=== PATIENT | female | born 1945 | race Caucasian/White ===

== ENCOUNTER 2020-01-21 15:46 | Outpatient (REF) | payer MEDICARE, SELFPAY ==
--- NOTE | 2020-01-21 16:00 | MR_ITS ---
MRI OF THE BRAIN WITHOUT IV CONTRAST INDICATION: Frontal headache. History of prior meningioma resection. COMPARISON: Brain MRI 02/20/2017. TECHNIQUE: Multiplanar multisequence MR imaging of the brain was obtained without IV contrast. FINDINGS: Chronic postoperative changes following left occipital craniotomy. There is chronic encephalomalacia and gliosis within the left cerebellum and left occipital lobe. There is mild chronic microangiopathy. There is parietal lobe predominant cerebral volume loss. There is no hydrocephalus, extra-axial surface collection, or herniation. The major flow voids at the skull base are preserved. There is no acute infarct on diffusion-weighted imaging. There is no intracranial hemorrhage on the gradient recalled echo acquisition. The midline structures are normal. The cerebellar tonsils are normally positioned. The craniocervical junction is normal. Osseous marrow signal intensity is homogenous. The visualized soft tissues are unremarkable. MR/MR head/brain wo con IMPRESSION: - No acute intracranial findings. - Chronic postoperative changes following left occipital craniotomy. There is chronic encephalomalacia and gliosis within the left cerebellum and left occipital lobe. There is mild chronic microangiopathy. There is parietal lobe predominant cerebral volume loss.
== END 2020-01-21 15:47 | disposition home or self-care (01) ==
LOC: HO.MRI 15:46
PROVIDERS: PCP Internal Medicine; Visit Provider Internal Medicine
DX: R51.9 Headache, unspecified (principal); Z86.011 Personal history of benign neoplasm of the brain
CPT/HCPCS: 70551

== ENCOUNTER 2020-03-29 11:24 | Outpatient (REF) | payer MEDICARE, SELFPAY ==
--- NOTE | ~2020-03-29 | MM_ITS ---
EXAMINATION: MM SCREENING DIGITAL BREAST TOMOSYNTHESIS, BILATERAL CLINICAL INFORMATION: Screening. Asymptomatic. The lifetime risk of breast cancer based on the Tyrer-Cuzick Model is 3%. COMPARISON: Mammography: 03/24/2019, 03/18/2018, 02/16/2017 TECHNIQUE: Digital breast tomosynthesis is performed in both the craniocaudal and mediolateral oblique views along with computer-aided detection (CAD). Synthesized 2D images are generated from the tomosynthesis. FINDINGS: There are scattered areas of fibroglandular density (ACR BI-RADS breast composition Category b). Parenchymal pattern is similar to prior studies. Again, there is stable nodule posterior 3:00 left breast and stable intramammary node posterior upper outer right breast. There is no developing density or interval mass or architectural abnormality. No abnormal calcifications. The axilla and skin contours are unremarkable. MM/MM tomosynthesis screening BI IMPRESSION: No significant changes from prior exams. ASSESSMENT: BI-RADS 2: Benign RECOMMENDATION: Routine annual mammography screening. This patient's information was entered into a reminder system with a target due date for their next mammogram.
== END 2020-03-29 11:25 | disposition home or self-care (01) ==
LOC: HO.MAMMO 11:24
PROVIDERS: Visit Provider Internal Medicine
DX: Z12.31 Encounter for screening mammogram for malignant neoplasm of breast (principal)
CPT/HCPCS: 77063; 77067

== ENCOUNTER 2020-07-08 07:31 | Outpatient (REF) | payer MEDICARE, SELFPAY ==
[2020-07-08 08:40] LABS: MANUAL DIFF FLAG NO
[2020-07-08 08:44] LABS: Basophils Percent Auto 0.7 % (0-2); Eosinophils Absolute Auto 0.2 X10*3/uL (0.0-0.4); Eosinophils Percent Auto 3.5 % (0-4); Hematocrit 41.8 % (37-47); Hemoglobin 13.7 g/dl (12.0-16.0); Lymphocytes Absolute Auto 1.6 X10*3/uL (1.2-4.9); Lymphocytes Percent Auto 34.1 % (20-40); Mean Corpuscular HGB Conc 32.8 g/dl (31.0-35.0); Mean Corpuscular Hemoglobin 31.7 pg (27.0-33.0); Mean Corpuscular Volume 96.8 fL (80-98); Mean Platelet Volume 10.8 fL (9.4-12.3); Monocytes Absolute Auto 0.3 X10*3/uL (0.1-1.2); Monocytes Percent Auto 7.4 % (2-11); Neutrophils Absolute Auto 2.5 X10*3/uL (2.0-8.3); Neutrophils Percent Auto 54.3 % (45-73); Platelet Count 254 X10*3/uL (160-400); Red Blood Count 4.32 X10*6/uL (4.20-5.50); Red Cell Distribution Width 13.4 % (11.0-16.0); White Blood Count 4.6 X10*3/uL (4.8-10.8)
[2020-07-08 09:08] LABS: Alanine Aminotransferase 20 U/L (0-31); Alkaline Phosphatase 60 U/L (39-117); Anion Gap 13 (12-20); Aspartate Amino Transferase 17 U/L (5-31); Bilirubin Total 0.3 mg/dL (0.0-1.0); Blood Urea Nitrogen 19 mg/dL (9-16); Calcium 9.5 mg/dL (8.4-10.2); Carbon Dioxide 28 mmol/L (22-29); Chloride 107 mmol/L (96-108); Cholesterol 230 mg/dL; Estimated Glomerular Filt Rate > 60; Glucose Random 105 mg/dL (60-115); HDL Cholesterol 76 mg/dL; LDL Cholesterol Calculated 141 mg/dl; Potassium 4.5 mmol/L (3.3-5.1); Sodium 143 mmol/L (135-145); Total Protein 6.5 g/dL (6.5-8.0); Triglycerides 69 mg/dL
[2020-07-08 09:22] LABS: TSH reflex Free T4 1.02 uIU/mL (0.32-4.0)
[2020-07-09 13:25] LABS: Lyme Abs Screen <0.90 index
== END 2020-07-08 07:32 | disposition home or self-care (01) ==
LOC: HO.LAB 07:31
PROVIDERS: PCP Internal Medicine; Visit Provider Internal Medicine
DX: R21 Rash and other nonspecific skin eruption (principal)
CPT/HCPCS: 36415; 80053; 80061; 84443; 85025; 86617; 86618

== ENCOUNTER 2021-05-05 15:33 | Outpatient (REF) | payer MEDICARE, SELFPAY ==
--- NOTE | ~2021-05-05 | MM_ITS ---
EXAMINATION: MM SCREENING DIGITAL BREAST TOMOSYNTHESIS, BILATERAL CLINICAL INFORMATION: Screening. Asymptomatic. The lifetime risk of breast cancer based on the Tyrer-Cuzick Model is 3%. COMPARISON: Mammography: 03/29/2020 and prior exams dating back to 07/08/2009 TECHNIQUE: Digital breast tomosynthesis is performed in both the craniocaudal and mediolateral oblique views along with computer-aided detection (CAD). Synthesized 2D images are generated from the tomosynthesis. FINDINGS: There are scattered areas of fibroglandular density (ACR BI-RADS breast composition Category b). The right MLO view has a 0.4 mm oval asymmetric density at the posterior margin of the film close to the posterior nipple line, approximately 7.5 cm from the nipple. Finding not seen with certainty on prior studies. Patient will be recalled for additional imaging. The remainder of the breasts are stable. There is a chronic oval nodule left breast posterior 3:30 o'clock position and 2 intramammary nodes upper outer right breast. There are no abnormal calcifications. The axilla and skin contours are unremarkable. MM/MM tomosynthesis screening BI IMPRESSION: 1. Right: Asymmetric density 0.4 cm near posterior nipple line at posterior margin right MLO view. 2. Left: No mammographic evidence of malignancy. ASSESSMENT: BI-RADS 0: Incomplete - Need Additional Imaging Evaluation RECOMMENDATION: 1. Additional views of the right breast (changed angle MLO, posterior CC). 2. Targeted ultrasound if warranted after review of the additional views. 3. Radiology department staff will contact the patient for additional imaging. This patient's information was entered into a reminder system with a target due date for their next mammogram.
== END 2021-05-05 15:34 | disposition home or self-care (01) ==
LOC: HO.MAMMO 15:33
PROVIDERS: PCP Internal Medicine; Visit Provider Internal Medicine
DX: Z12.31 Encounter for screening mammogram for malignant neoplasm of breast (principal)
CPT/HCPCS: 77063; 77067

== ENCOUNTER 2021-05-17 13:51 | Outpatient (REF) | payer MEDICARE, SELFPAY ==
--- NOTE | ~2021-05-17 | MM_ITS ---
EXAMINATION: MM DIAGNOSTIC DIGITAL BREAST TOMOSYNTHESIS, RIGHT US DIAGNOSTIC ULTRASOUND BREAST, RIGHT CLINICAL INFORMATION: Recall from screening for small oval asymmetric density posterior margin of film) posterior nipple line. Finding may be beyond field of view on prior exams. COMPARISON: Mammography: 05/05/2021, 03/29/2020 and prior exams dating back to 07/08/2009. TECHNIQUE: Digital breast tomosynthesis is performed. 2D images are generated from the tomosynthesis. The following views are obtained: Right MLO x2, exaggerated right CC. Ultrasound right breast is targeted to the posterior breast imaging from all 4 quadrants. Grayscale imaging and color Doppler are performed without and with harmonics. FINDINGS: There are scattered areas of fibroglandular density (ACR BI-RADS breast composition Category b). Additional views show small oval circumscribed smooth nodular asymmetry posterior nipple line 7.5 cm from nipple measuring 6 mm in length. No correlate on exaggerated CC view. There are 2 incidental nodes in the posterior outer right breast similar to prior studies. Ultrasound demonstrates incidental simple cyst 8:00 position adjacent to chest wall 7-8 cm from nipple measuring 6 mm in length by 4 mm in width. There is increased through-transmission of sound. No associated color flow. This corresponds to the finding on mammography. There is no solid mass or architectural abnormality. No focal duct ectasia. Chest wall soft tissues appear normal. Results are discussed with the patient at time of visit. MM/MM tomosynthesis added views R IMPRESSION: -Smooth nodular asymmetry under 1 cm posterior outer right breast, possibly beyond field of view on prior imaging. -Oval simple cyst posterior 8:00 position adjacent to chest wall under 1 cm corresponding to the mammography. No solid mass or architectural abnormality. ASSESSMENT: BI-RADS 2: Benign RECOMMENDATION: Routine annual mammography screening. This patient's information was entered into a reminder system with a target due date for their next mammogram.
== END 2021-05-17 13:52 | disposition home or self-care (01) ==
LOC: HO.MAMMO 13:51
PROVIDERS: PCP Internal Medicine; Visit Provider Internal Medicine
DX: R92.2 Inconclusive mammogram (principal)
CPT/HCPCS: 76642; 77061; 77065

== ENCOUNTER 2022-01-24 08:49 | Outpatient (REF) | payer MEDICARE, SELFPAY ==
--- NOTE | ~2022-01-24 | MM_ITS ---
EXAMINATION: BONE DENSITOMETRY CLINICAL INDICATION: Osteoporosis. COMPARISON: Previous BD dated 01/09/2019 and baseline BD dated 02/17/2005. TECHNIQUE: Using a [employer] DXA System (software version: 13.1) manufactured by [employer], dual-energy x-ray absorptiometry was performed of the lumbar spine and left hip. The images are of good technical quality. Summary results are attached. FINDINGS: AP SPINE L1-L4: Current: BMD 1.017 g/cm2, Z-score 0.5, T-score -1.4, osteopenia, 3.1% decrease from previous, 7.7% increase from baseline (<5% change is not significant). Prior: BMD 1.049 g/cm2. Baseline: BMD 0.944 g/cm2. LEFT FEMUR, NECK: Current: BMD 0.755 g/cm2, Z-score 0.0, T-score -2.0, osteopenia. Prior: BMD 0.761 g/cm2. Baseline: BMD 0.922 g/cm2. LEFT FEMUR, TOTAL: Current: BMD 0.806 g/cm2, Z-score 0.2, T-score -1.6, osteopenia, 4.6% decrease from previous, 18.5% decrease from baseline (<5% change is not significant). Prior: BMD 0.845 g/cm2. Baseline: BMD 0.989 g/cm2. IDENTIFIED RISK FACTORS: Osteoporosis, family history (parental hip fracture), menopause. HISTORY OF FRACTURE: Foot. MEDICATIONS: Multivitamin. MM/XR DEXA axial skeleton IMPRESSION: 1. DIAGNOSIS: Osteopenia based on the lowest T-score value of -2.0 in the femoral neck applying World Health Organization criteria. 2. 10-YEAR FRACTURE RISK PREDICTION, FRAX: Major osteoporotic fracture (clinical spine, forearm, hip or shoulder) 25.6%. Hip fracture 15.6%. 3. Treatment Recommendations: NOF guidelines recommend consideration for treatment in postmenopausal women and men age 50 and older presenting with the following: -A hip or vertebral (clinical or morphometric) fracture. -T-score less than or equal to -2.5 at the femoral neck or spine after appropriate evaluation to exclude secondary causes. -Low bone mass at the hip or spine and a 10-year fracture probability by FRAX of greater than or equal to 3% for hip fracture or greater than or equal to 20% for major osteoporotic fracture based on the [place] adapted WHO algorithm. 4. Other Recommendations: All treatment decisions require clinical judgment and consideration of individual patient factors, including patient preferences, comorbidities, previous drug use, risk factors not captured in the FRAX model (e.g. frailty, falls, vitamin D deficiency, increased bone turnover, interval significant decline in bone density) and possible under or overestimation of fracture risk by FRAX. Additional medical evaluation for secondary cause of low bone mineral density may be appropriate. FUTURE SCAN RECOMMENDATION: People with diagnosed cases of osteoporosis or at high risk for fracture should have regular bone mineral density tests. For patients eligible for Medicare, routine testing is allowed once every 2 years. The testing frequency can be increased to one year for patients who have rapidly progressing disease, those who are receiving or discontinuing medical therapy to restore bone mass, or have additional risk factors.
== END 2022-01-24 08:50 | disposition home or self-care (01) ==
LOC: HO.MAMMO 08:49
PROVIDERS: PCP Internal Medicine; Visit Provider Internal Medicine
DX: Z13.820 Encounter for screening for osteoporosis (principal); Z78.0 Asymptomatic menopausal state; M81.0 Age-related osteoporosis without current pathological fracture
CPT/HCPCS: 77080

== ENCOUNTER 2022-03-31 07:33 | Outpatient (REF) | payer MEDICARE, SELFPAY ==
[2022-03-31 10:27] LABS: MANUAL DIFF FLAG NO
[2022-03-31 10:44] LABS: Basophils Percent Auto 0.6 % (0-2); Eosinophils Absolute Auto 0.3 X10*3/uL (0.0-0.4); Hematocrit 43.5 % (37.0-47.0); Hemoglobin 14.4 g/dl (12.0-16.0); Imm Gran Abs Auto 0.02 X10*3/uL (0.00-0.03); Imm Gran Pct Auto 0.3 % (0.0-0.4); Lymphocytes Absolute Auto 1.8 X10*3/uL (1.2-4.9); Lymphocytes Percent Auto 28.5 % (20-40); Mean Corpuscular HGB Conc 33.1 g/dl (31.0-35.0); Mean Corpuscular Hemoglobin 31.8 pg (27.0-33.0); Monocytes Absolute Auto 0.5 X10*3/uL (0.1-1.2); Monocytes Percent Auto 8.2 % (2-11); Neutrophils Absolute Auto 3.8 x10*3/uL (2.0-8.3); Neutrophils Percent Auto 58.4 % (45-73); Platelet Count 291 X10*3/uL (160-400); Red Blood Count 4.53 X10*6/uL (4.20-5.50); Red Cell Distribution Width 13.5 % (11.0-16.0); White Blood Count 6.4 X10*3/uL (4.8-10.8)
[2022-03-31 10:57] LABS: Alanine Aminotransferase 19 U/L (0-31); Albumin Level 3.9 g/dL (3.5-5.0); Alkaline Phosphatase 62 U/L (39-117); Anion Gap 14 (12-20); Aspartate Amino Transferase 17 U/L (5-31); Bilirubin Total 0.4 mg/dL (0.0-1.0); Blood Urea Nitrogen 18 mg/dL (9-16); Calcium 9.5 mg/dL (8.4-10.2); Carbon Dioxide 25 mmol/L (22-29); Chloride 109 mmol/L (96-108); Cholesterol 261 mg/dL; Estimated Glomerular Filt Rate > 60; Glucose Fasting 98 mg/dL (60-99); HDL Cholesterol 74 mg/dL; LDL Cholesterol Calculated 167 mg/dl; Potassium 4.4 mmol/L (3.3-5.1); Sodium 144 mmol/L (135-145); Total Protein 6.4 g/dL (6.5-8.0); Triglycerides 101 mg/dL
[2022-03-31 11:17] LABS: TSH reflex Free T4 2.01 uIU/mL (0.32-4.0); Vitamin D 25-OH Total 38.2 ng/mL (>30)
== END 2022-03-31 07:34 | disposition home or self-care (01) ==
LOC: HO.10HDL 07:33
PROVIDERS: Absent Provider Internal Medicine Endocrinology, Diabetes & Metabolism; Visit Provider Internal Medicine
DX: Z00.00 Encounter for general adult medical examination without abnormal findings (principal); N81.0 Urethrocele
CPT/HCPCS: 36415; 80053; 80061; 82306; 84443; 85025

== ENCOUNTER 2022-05-11 14:51 | Outpatient (REF) | payer MEDICARE, SELFPAY ==
--- NOTE | ~2022-05-11 | MM_ITS ---
EXAMINATION: MM SCREENING DIGITAL BREAST TOMOSYNTHESIS, BILATERAL CLINICAL INFORMATION: Screening. Asymptomatic. The lifetime risk of breast cancer based on the Tyrer-Cuzick Model is 2.7%. COMPARISON: Mammography: May 17, 2021 and studies dating back to November 11, 2015 TECHNIQUE: Digital breast tomosynthesis is performed in both the craniocaudal and mediolateral oblique views along with computer-aided detection (CAD). Synthesized 2D images are generated from the tomosynthesis. FINDINGS: There are scattered areas of fibroglandular density (ACR BI-RADS breast composition Category b). There are no new significant masses, abnormal calcifications, or other abnormalities. Bilateral circumscribed densities again seen. MM/MM tomosynthesis screening BI IMPRESSION: No significant changes ASSESSMENT: BI-RADS 2: Benign RECOMMENDATION: Routine annual mammography screening. This patient's information was entered into a reminder system with a target due date for their next mammogram.
== END 2022-05-11 14:52 | disposition home or self-care (01) ==
LOC: HO.MAMMO 14:51
PROVIDERS: PCP Internal Medicine; Visit Provider Internal Medicine
DX: Z12.31 Encounter for screening mammogram for malignant neoplasm of breast (principal)
CPT/HCPCS: 77063; 77067

== ENCOUNTER 2023-05-17 09:16 | Outpatient (REF) | payer MEDICARE, SELFPAY | END 2023-05-17 09:17 | disposition home or self-care (01) | LOC: HO.MAMMO 09:16 | PROVIDERS: PCP Internal Medicine; Visit Provider Internal Medicine | DX: Z12.31 Encounter for screening mammogram for malignant neoplasm of breast (principal) | CPT/HCPCS: 77063; 77067 ==

== ENCOUNTER → 2023-05-17 09:30 | Outpatient (BNV) | payer MEDICARE, SELFPAY | PROVIDERS: PCP Internal Medicine; Visit Provider Radiology Diagnostic Radiology | DX: Z12.31 Encounter for screening mammogram for malignant neoplasm of breast (principal) | CPT/HCPCS: 77063; 77067 ==

== ENCOUNTER 2023-05-18 07:43 | Outpatient (REF) | payer MEDICARE, SELFPAY ==
[2023-05-18 11:05] LABS: MANUAL DIFF FLAG NO
[2023-05-18 11:13] LABS: Basophils Percent Auto 0.4 % (0-2); Eosinophils Absolute Auto 0.3 X10*3/uL (0.0-0.4); Eosinophils Percent Auto 4.3 % (0-4); Hematocrit 40.6 % (37.0-47.0); Hemoglobin 13.5 g/dl (12.0-16.0); Imm Gran Abs Auto 0.02 X10*3/uL (0.00-0.03); Imm Gran Pct Auto 0.3 % (0.0-0.4); Lymphocytes Absolute Auto 1.9 X10*3/uL (1.2-4.9); Lymphocytes Percent Auto 27.7 % (20-40); Mean Corpuscular HGB Conc 33.3 g/dl (31.0-35.0); Mean Corpuscular Hemoglobin 31.4 pg (27.0-33.0); Mean Corpuscular Volume 94.4 fL (80.0-98.0); Mean Platelet Volume 10.6 fL (9.4-12.3); Monocytes Absolute Auto 0.5 X10*3/uL (0.1-1.2); Monocytes Percent Auto 7.7 % (2-11); Neutrophils Absolute Auto 4.1 x10*3/uL (2.0-8.3); Neutrophils Percent Auto 59.6 % (45-73); Platelet Count 274 X10*3/uL (160-400); Red Cell Distribution Width 13.4 % (11.0-16.0); White Blood Count 6.9 X10*3/uL (4.8-10.8)
[2023-05-18 11:33] LABS: Alanine Aminotransferase 24 U/L (0-31); Albumin Level 3.7 g/dL (3.5-5.0); Alkaline Phosphatase 52 U/L (39-117); Anion Gap 12 (12-20); Aspartate Amino Transferase 17 U/L (5-31); Bilirubin Total 0.4 mg/dL (0.0-1.0); Blood Urea Nitrogen 19 mg/dL (9-16); Calcium 9.1 mg/dL (8.4-10.2); Carbon Dioxide 26 mmol/L (22-29); Chloride 110 mmol/L (96-108); Cholesterol 220 mg/dL (<200); Estimated Glomerular Filt Rate > 60; Glucose Random 103 mg/dL (60-115); HDL Cholesterol 57 mg/dL (>40); LDL Cholesterol Calculated 144 mg/dL (<100); Potassium 3.9 mmol/L (3.3-5.1); Sodium 144 mmol/L (135-145); Total Protein 6.8 g/dL (6.5-8.0); Triglycerides 95 mg/dL (<150)
== END 2023-05-18 07:44 | disposition home or self-care (01) ==
LOC: HO.10HDL 07:43
PROVIDERS: Referring Provider Internal Medicine Endocrinology, Diabetes & Metabolism; Visit Provider Internal Medicine
DX: Z00.00 Encounter for general adult medical examination without abnormal findings (principal); M81.0 Age-related osteoporosis without current pathological fracture; Z20.2 Contact with and (suspected) exposure to infections with a predominantly sexual mode of transmission
CPT/HCPCS: 36415; 80053; 80061; 82306; 85025

== ENCOUNTER 2024-05-22 09:19 | Outpatient (REF) | payer MEDICARE, SELFPAY ==
--- OUTSIDE RECORDS SUMMARY | 2024-05-22 09:49 | XMS_ITS ---
Author Organization [facility] Address [address] [place] [address] Care Team Providers Care Environmental Systems Coordinator Name Role Phone Saul Blanton MD Primary Care Provider Unavailab Tami Cain Unavailable [phone] Lovelace Medications Medication SIG (Take, Route, Frequency, Duration) Notes Start Date End Date Status PreserVision AREDS A ctive Citalopram & Diet Manage Prod Active Social History Tobacco Use: Social History Observation Description Date Details (start date - stop date) Former Smoker NA - NA Tobacco Use/Smoking Question Answer Notes Are you a: former smoker Additional Findings: Tobacco Non-User Current no n-smoker Alcohol Screen Question Answer Notes Did you have a drink containing alcohol in the p ast year? Yes Points 0 Interpretation Negative Tobacco use other than smoking: Question Answer Notes Are you an other tobacco user? No Vital Signs Height 5 ft 3 in in 11/19/2023 Weight 135 lbs 11/19/2023 BMI 23.91 kg/m2 11/19/2023 Encounters Encounter Location Date Provider [facility] [address] [place] [address] 11/19/2023 Tami Crabtree Plan Of Treatment Next Appt Details Provider Name:Tami A Bro , 07/17/2024 09:15:00 AM, [address] [place], [address], Progress Notes * Denzel LAYTONOB:1945 (79 yo F)Acc No.[id number]:11/19/2023 Progress Notes Patient:Joy BAILEY Provider:?Tami Crabtree DPM :1945???Age:78 Y???Sex:Female D ate:11/19/2023 Address:[address] [place], [place] [id number] Pcp:Saul Blanton MD Subjective: * Chief Complaints: * ???1. Dr Lovelace. * ROS:?General/Constitutional:?Nausea?denies.?Vomiting?denies.?Hunger Thirst?denies.?Loss appetite?denies.?Chills?denies.?Fatigue?denies.?Fever?denies.?Night Sweats?denies.?Unexplained weight loss?denies.?Unexplained weight gain?denies.?HEENTM:?Dentures?denies.?Dizziness?denies.?Glasses/contacts?admits.?Retinopathy?de nies.?Blurred/double vision?admits.?TMJ?denies.?Discharge/drainage?denies.?Implants?denies.?Sore throat?denies.?Dental implants?admits.?Hard of hearing ?admits.?Difficulty chewing/swallowing/speaking?denies.?Nose bleeds?denies.?Sore mouth?denies.?Respiratory:?On Oxygen?denies.?Pneumonia/pleurisy?denies.?Bronchitis?denies.?Emphysema?denies.?C oughing?denies.?Cough blood?denies.?Shortness of breath?denies.?Wheezing?denies.?Cardiovascular:?Pacemaker?denies.?MVP?denies.?WPW?denies.?CHF?denies.?Heart attack?denies.?Septal defect?denies.?Rapid beat?denies.?Chest pain ?denies.?Atrial Fib.?denies.?Murmur/Palpitations?denies.?Gastrointestinal:?Hemorrhoids?denies.?Stomach/Abdominal pain?denies.?Dark blood stool?denies.?Irritable bowel ?denies.?Constipation?denies.?Diarrhea?admits.?Hematology:?Swelling?denies.?Clots?denies.?Varicose Veins?denies.?Bruising?denies.?Bleeding problem?denies.?Genitourinary:?Blood urine?denies.?Frequent/Painfu/urination/bladder control?denies.?Kidney stones?denies.?Infection (UTI)?denies.?Nephropathy?denies.?sex trans dis (STD)?denies.?Prostate?denies.?Musculoskeletal:?Hammertoes?denies.?Bunions?denies.?Back Pain?denies.?Muscle Cramps/ Resting?denies.?Muscle cramps / walking?denies.?Generalized aches and pains?denies.?Weakness?denies.?Integ.:?Gomez?denies.?Scars?denies.?Corns/calluses?denies.?Ingrown nails?denies.?Painful nails?denies.?Open Sores?denies.?Rashes?denies.?Neurologic:?Difficulty sleeping?denies.?Brain disorder?denies.?Numbness?denies.?Balance trouble?denies.?Confusion?denies.?Fainting/blackouts?denies.?Tingling?denies.?Tr emors?denies.? * Medical History:?Back,Hip,an d Knee pain, Broken bones, Cataracts, Covid-19, Depression, Osteoporosis, Measles, Chicken pox, Joint implants/screws. * Surgical History:?knee repla cement , meningioma . * Family History:?Mother: dece ased, diagnosed with Unspecified cerebral artery occlusion with cerebral infarction.?Father: , diagnosed with Other malignant neoplasm of unspecified site.?Siblings: diagnosed with Unspecified heart disease.? * Social History:?Tobacco Use:?Tobacco Use/Smoking?Are you a:?former smoker ?Additional Findings: Tobacco Non-User?Current non-smoker ?Tobacco use other than smoking?Are you an other tobacco user??No ???Drugs/Alcohol:?Drugs?Have you used drugs other than those for medical reasons in the past 12 months??No ?Alcohol Screen?Did you have a drink containing alcohol in the past year??Yes ?Points?0 ?Interpretation?Negative ???Miscellaneous:?Caffeine: yes. ?Children: yes, 3. ?Marital status: . * Medications:?Taking PreserVi david AREDS , Taking Citalopram & Diet Manage Prod Objective: * Vitals:?Ht: 5 ft 3 in, Wt: 1 35, BMI: 23.91, Shoe size: 8.5, Ht-cm: 160.02 cm, Wt-k.23 kg. Assessment: Plan: * Treatment: * Images: * The named appointment provid er may or may not be the originator of this progress note, and it is not deemed complete until electronically signed by the appointment provider. Sign off status: Pending * Provider:?Tami Crabtree DPM Date:?2023 Generated for Ivonne deng/Nancie/Jami on:?05/22/2024 09:49 AM EDT
--- OUTSIDE RECORDS SUMMARY | 2024-05-22 09:49 | XMS_ITS ---
[facility] Organization [facility] Address [address] [place] [address] Care Team Providers Care Harvest Contractor Name Role Phone Saul Blanton MD Primary Care Provider Unavailab Tami Cain [phone] Encounters Encounter Location Date Provider Diagnosis [facility] [address] [place] [address] 11/20/2023 Tami Crabtree Plan Of Treatment Next Appt Details Provider Name:Tami Crabtree , 07/17/2024 09:15:00 AM, [address] [place], [address], Progress Notes * Denzel LAYTONOB:1945 (78 yo F)Acc No.[id number]:11/20/2023 Patient:?Joy Layton :1945???Age:78 Y???Sex:Female Address:[address] [place] [address], [place] [address] * true * Date:? Generated for Printi ng/Faangelag/eTransmitting on:?05/22/2024 09:49 AM EDT
--- OUTSIDE RECORDS SUMMARY | 2024-05-22 09:49 | XMS_ITS | Patient Health Record ---
Author Organization [facility] Address [address] [facility] [place] [address] Care Team Providers Care State Farm Agent Name Role Phone Saul Blanton MD Primary Care Provider Unavailab Taim Cain Unavailable [phone] Allergies No Known Allergies Reason For Referral No Information Medications Medication SIG (Take, Route, Frequency, Duration) Notes Start Date End Date Status Urea Nail 45 % 1 application as nee ded Externally Once a day 03/03/2024 Active Citalopram & Diet Manage Prod Active PreserVision AREDS A ctive Citalopram Hydrobromide 20 MG 1 tablet Orally Once a day Active PreserVision AREDS A ctive Ciclopirox 8 % 1 application Commercial Construction Project Manager ally Once a day for 30 11/08/2023 Active Tolnaftate 1 % 1 application Commercial Construction Project Manager ally Once a day 03/03/2024 Active Social History Tobacco Use: Social History Observation Description Date Details (start date - stop date) Never Smoker NA - NA Alcohol Screen Question Answer Notes Did you have a drink containing alcohol in the p ast year? Yes Points 0 Interpretation Negative Tobacco use other than smoking: Question Answer Notes Are you an other tobacco user? 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 Vital Signs Blood pressure diastolic 70 mm Hg 03/03/2024 Height 5 ft 3 in in 03/03/2024 Blood pressure systolic 120 mm Hg 03/03/2024 Weight 140 lbs 03/03/2024 BMI 24.8 kg/m2 03/03/2024 Encounters Encounter Location Date Provider Diagnosis [address] [address] 11/08/2023 Tami Black Tinea unguium B35.1 ; Pain in right foot M79.671 ; Pain in right toe(s) M79.674 ; Pain in left toe(s) M79.675 ; Pain in right ankle and joints of right foot M25.571 ; Bursitis of right foot M77.51 ; 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 and Hallux limitus of right foot M20.5X1 [address] [address] 03/03/2024 Tami Black Tinea unguium B35.1 ; Pain in right foot M79.671 ; Pain in right toe(s) M79.674 ; Pain in left toe(s) M79.675 ; Pain in right ankle and joints of right foot M25.571 ; Bursitis of right foot M77.51 ; 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 and Hallux limitus of right foot M20.5X1 [address] [address] 10/08/[address] [address] 11/09/[address] [address] 11/12/[address] [address] 11/20/2023 Tami Crabtree Assessments Encounter Date Diagnosis (ICD Code) Assessment Notes Treatment Notes Treatment Clinical Notes Section Notes 11/08/2023 Tinea unguium (ICD-10 - B35.1) Patient Educated with: FUNGUS NAIL INFECTIONS.pdf (FUNGUS NAIL INFECTIONS.pdf ) 11/08/2023 Pain in right foot (ICD-10 - M79.671) 03/03/2024 Tinea unguium (ICD-10 - B35.1) Patient Educated with: FUNGUS NAIL INFECTIONS.pdf (FUNGUS NAIL INFECTIONS.pdf ) 03/03/2024 Pain in right foot (ICD-10 - M79.671) 03/03/2024 Pain in right toe(s) (ICD-10 - M79.674) 11/08/2023 Pain in right toe(s) (ICD-10 - M79.674) 11/08/2023 Pain in left toe(s) (ICD-10 - M79.675) 03/03/2024 Pain in left toe(s) (ICD-10 - M79.675) 03/03/2024 Pain in right ankle and joints of right foot (ICD-10 - M25.571) 11/08/2023 Pain in right ankle and joints of right foot (ICD-10 - M25.571) 11/08/2023 Bursitis of right foot (ICD-10 - M77.51) 03/03/2024 Bursitis of right foot (ICD-10 - M77.51) 03/03/2024 Pronation of right foot (ICD-10 - M21.6X1) 11/08/2023 Pronation of right foot (ICD-10 - M21.6X1) 11/08/2023 Hallux limitus of right foot (ICD-10 - M20.5X1) 03/03/2024 Hallux limitus of right foot (ICD-10 - M20.5X1) Plan Of Treatment Pending Test Test Name Order Date Nail Panel 11/08/2023 Next Appt Details Provider Name:Tami Crabtree , 07/17/2024 09:15:00 AM, [address] [place], [address], Insurance Providers Payer Name Payer Address Payer Phone Subscriber Number Group Number Insured Name Patient Relationship to Insured Coverage Start Date Coverage End Date [employer] [address] [place] [address] [id number] [place] Self - patient is the insured Medical (General) History Medical History History ICD Code Back,Hip,and Knee pain Broken bones Cataracts covid-19 Depression Osteoporosis Measles Chicken pox Joint implants/screws Surgical History Surgery Date(Month/Year) knee replacement meningioma
--- OUTSIDE RECORDS SUMMARY | 2024-05-22 09:50 | XMS_ITS ---
[facility] [address] Address [address] [place] [address] Care Team Providers Care Fruit Farmer Name Role Phone Saul Blanton MD Primary Care Provider Unavailab Tami Cain Unavailable [phone] Allergies No Known Allergies REASON FOR VISIT Painful nail(s) aggravated by shoes causing difficulty standing/walking, Foot pain Medications Medication SIG (Take, Route, Frequency, Duration) Notes Start Date End Date Status Citalopram & Diet Manage Prod Active PreserVision AREDS A ctive PreserVision AREDS A ctive Ciclopirox 8 % 1 application Cattle Farmer ally Once a day for 30 11/08/2023 Active Tolnaftate 1 % 1 application Cattle Farmer ally Once a day 03/03/2024 Active Urea Nail 45 % 1 application as nee ded Externally Once a day 03/03/2024 Active Citalopram Hydrobromide 20 MG 1 tablet Orally Once a day Active Social History Tobacco Use: Social History Observation Description Date Details (start date - stop date) Never Smoker NA - NA Tobacco use other than smoking: Question Answer Notes Are you an other tobacco user? No Tobacco Control (Standard) Question Answer Notes Tobacco use: Nonsmoker Vital Signs Height 5 ft 3 in in 03/03/2024 Weight 140 lbs 03/03/2024 BMI 24.8 kg/m2 03/03/2024 Blood pressure systolic 120 mm Hg 03/03/19 25 Blood pressure diastolic 70 mm Hg 025 Encounters Encounter Location Date Provider Diagnosis [facility] [address] [place] [address] 03/03/2024 Tami Crabtree Tinea unguium B35.1 ; Pain in right foot M79.671 ; Pain in right toe(s) M79.674 ; Pain in left toe(s) M79.675 ; Pain in right ankle and joints of right foot M25.571 ; Bursitis of right foot M77.51 ; 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 and Hallux limitus of right foot M20.5X1 Assessments Encounter Date Diagnosis (ICD Code) Assessment Notes Treatment Notes Treatment Clinical Notes Section Notes 03/03/2024 Tinea unguium (ICD-10 - B35.1) Patient Educated with: FUNGUS NAIL INFECTIONS.pdf (FUNGUS NAIL INFECTIONS.pdf ) 03/03/2024 Pain in right foot (ICD-10 - M79.671) 03/03/2024 Pain in right toe(s) (ICD-10 - M79.674) 03/03/2024 Pain in left toe(s) (ICD-10 - M79.675) 03/03/2024 Pain in right ankle and joints of right foot (ICD-10 - M25.571) 03/03/2024 Bursitis of right foot (ICD-10 - M77.51) 03/03/2024 Pronation of right foot (ICD-10 - M21.6X1) 03/03/2024 Hallux limitus of right foot (ICD-10 - M20.5X1) Plan Of Treatment Medication Medication Name Sig Start Date Stop Date Notes Tolnaftate 1 % 1 application Externally Once a day 025 Urea Nail 45 % 1 application as nee ded Externally Once a day 03/03/2024 Treatment Notes Assessment Notes Tinea unguium Patient Educated wit h: FUNGUS NAIL INFECTIONS.pdf (FUNGUS NAIL INFECTIONS.pdf) Next Appt Details Follow Up: 3 Months, Reason: Provider Name:Tami Crabtree , 07/17/2024 09:15:00 AM, [address] [place] [address], [id number], Progress Notes * Denzel LAYTONOB:1945 (79 yo F)Acc No.[id number]:03/03/2024 Progress Note Patient:?Joy LAYTON Provider:?Tami Crabtree DPM :1945???Age:79 Y???Sex:Female D ate:03/03/2024 Address:[address] [place] [address], [id number] Pcp:Saul Blanton MD Subjective: * Chief Complaints: * ???Painful nail(s) aggravate d by shoes causing difficulty standing/walkingFoot pain * HPI: ???Painful Nails:?Pt States Last PCP Visit:?Date:?01/31/2024 ?Nature:?tender , discolored , thick.?Location:?Great toe , Both feet.?Duration:?several months.?Onset/Cause:?unknown.?Course:?, improved at 20 %.?Treatments:?relates adherence to recom tx, Tolernate and urea nail gel- recomm by nail culture.?Foot Pain:?Location:?Inside, Great toe joint, RIGHT.?Duration:?, several years.?Course:?, improved, at 85 %.?Aggravated:?any pressure.?Treatments:?rest/alter normal daily activity, change in shoes.? * ROS:?General/Constitutional:?Nausea?denies.?Vomiting?denies.?Hunger Thirst?denies.?Loss appetite?denies.?Chills?denies.?Fatigue?denies.?Fever?denies.?Night Sweats?denies.?Unexplained weight loss?denies.?Unexplained weight gain?denies.?HEENTM:?Dentures?denies.?Dizziness?denies.?Glasses/contacts?admits.?Retinopathy?de nies.?Blurred/double vision?admits.?TMJ?denies.?Discharge/drainage?denies.?Implants?denies.?Sore throat?denies.?Dental implants?admits.?Hard of hearing ?admits.?Difficulty chewing/swallowing/speaking?denies.?Nose bleeds?denies.?Sore mouth?denies.?Respiratory:?On Oxygen?denies.?Pneumonia/pleurisy?denies.?Bronchitis?denies.?Emphysema?denies.?C oughing?denies.?Cough blood?denies.?Shortness of breath?denies.?Wheezing?denies.?Cardiovascular:?Pacemaker?denies.?MVP?denies.?WPW?denies.?CHF?denies.?Heart attack?denies.?Septal defect?denies.?Rapid beat?denies.?Chest pain ?denies.?Atrial Fib.?denies.?Murmur/Palpitations?denies.?Gastrointestinal:?Hemorrhoids?denies.?Stomach/Abdominal pain?denies.?Dark blood stool?denies.?Irritable bowel ?denies.?Constipation?denies.?Diarrhea?admits.?Hematology:?Swelling?denies.?Clots?denies.?Varicose Veins?denies.?Bruising?denies.?Bleeding problem?denies.?Genitourinary:?Blood urine?denies.?Frequent/Painfu/urination/bladder control?denies.?Kidney stones?denies.?Infection (UTI)?denies.?Nephropathy?denies.?sex trans dis (STD)?denies.?Prostate?denies.?Musculoskeletal:?Hammertoes?denies.?Bunions?denies.?Back Pain?denies.?Muscle Cramps/ Resting?denies.?Muscle cramps / walking?denies.?Generalized aches and pains?denies.?Weakness?denies.?Integ.:?Gomez?denies.?Scars?denies.?Corns/calluses?denies.?Ingrown nails?denies.?Painful nails?,admits.?Open Sores?denies.?Rashes?denies.?Neurologic:?Difficulty sleeping?denies.?Brain disorder?denies.?Numbness?denies.?Balance trouble?denies.?Confusion?denies.?Fainting/blackouts?denies.?Tingling?denies.?Tr emors?denies.? * Medical History:? * Surgical History:?knee repla cement meningioma * Hospitalization/Major Diagno stic Procedure:?Denies Past Hospitalization * Family History:?Mother: dece ased, diagnosed with Unspecified cerebral artery occlusion with cerebral infarction.?Father: , diagnosed with Other malignant neoplasm of unspecified site.?Siblings: diagnosed with Unspecified heart disease.? * Social History:?Tobacco Use:?Tobacco use other than smoking?Are you an other tobacco user??No ?Tobacco Control (Standard)?Tobacco use:?Nonsmoker ???Miscellaneous:?Caffeine: yes, 1-2 cups per day. ?Children: yes, 3. ?Exercise: yes. ?Marital status: . ?Occupation: Retired, social media senior associate. * Medications:?TakingPreserVis ion AREDS Citalopram & Diet Manage Prod PreserVision AREDS Citalopram Hydrobromide 20 MG Tablet 1 tablet Orally Once a day Ciclopirox 8 % Solution 1 application Externally Once a day Medication List reviewed and reconciled with the patientTaking PreserVision AREDS Taking Citalopram & Diet Manage Prod Taking PreserVision AREDS Taking Citalopram Hydrobromide 20 MG Tablet 1 tablet Orally Once a day Taking Ciclopirox 8 % Solution 1 application Externally Once a day Medication List reviewed and reconciled with the patient * Allergies:?N.K.D.A.yes[Aller gies Verified] Objective: * Vitals:?Ht: 5 ft 3 in, Wt: 1 40, BMI: 24.8, Shoe size: 8.5-9, BP: 120/70 mm Hg, Ht-cm: 160.02 cm, Wt-k.5 kg. * Examination: ???General Examination: ?GENERAL APPEARANCE:?Reveals a pleasant, alert, well nourished, well- developed, well hydrated individual, who demonstrates proper attention to hygiene/body habitus, and is in no acute distress, Pt serves as own historian for office visit today.?ORIENTED:?person, place, and time.?Nails: ?NAILS are:?Elongated, overgrown, dystrophic, lytic, greater than 3mm thick, discolored and friable with crumbly malodorous subungual debris, with pain on palpation , TA , T5 , T9.?Orthopedic: ?MUSCLE STRENGTH:?5/5 all groups in a symmetrical fashion, B/L.?GAIT ABNORMALITY:?Pronated , abducted angle and base of gate , B/L.?FOOT MORPHOLOGY:?normal , B/L.?BUNION:?Dorso-Medially prominent 1st MPJ , Limited 1st MPJ Dorsal ROM , Limited 1st MPJ Plantar ROM , Crepitus with ROM present , Pain assoc with 1st MPJ ROM DECREASED?.?DIGITAL DEFORMITIES:?Digital contracture, PIPJ, 2-5 B/L, incompl-reducible with WB, or to push-up test, no over, nor underlapping.?Neurological: ?SENSORY:?Neurological exam reveals intact sensorium, pain sensation normal, vibration sensation intact, pinprick sensation is normal in the lower extremities, Pt denies, anesthesia, burning, paresthesia, tingling, B/L.?TINEL'S COMPRESSION:? Negative, Saphenous nerve distribution, Right.?DEEP TENDON REFLEXES:?Achilles, 2/4, B/L.?Vascular: ?DP PULSES (B):?3/4, B/L.?PT PULSES (B):?3/4, B/L.?CAPILLARY FILL TIME:?immediate, all digits, B/L.?TROPHIC CONDITION-TEXTURE/ELASTICITY/TURGOR/HAIR GROWTH (B):?normal, B/L.?TEMPERTURE GRADIENT (C):?normal, warm to cool, proximal to distal, B/L, B/L.?PIGMENTATION:?normal, B/L.? Assessment: * Assessment: 1.?Tinea unguium - B35.1 (Pr imary)???Specify :Acute problem, Uncomplicated (3)???2.?Pain in right foot - M79.671???3.?Pain in right toe(s) - M79.674???4.?Pain in left toe(s) - M79.675???5.?Pain in right ankle and joints of right foot - M25.571???6.?Bursitis of right foot - M77.51???7.?Pronation of right foot - M21.6X1???8.?Hallux limitus of right foot - M20.5X1???Specify :Chronic problem, Stable (1=3,2=4)??? Plan: * Treatment: * Procedure Codes:? * Preventive Medicine:? ??Counseling:?Biopsy Follow-Up:?Biopsy Results (All components):?Reviewed with patient ?Discussion:?-14: Office or other outpatient visit for the evaluation and management of an established patient, which required a medically appropriate history and/or examination and MODERATE level of DECISION MAKING for: 1 OR MORE CHRONIC PROBLEM(S) THATS WORSENING, 2 STABLE CHRONIC PROBLEMS, A NEWLY DIAGNOSED PROBLEM WITH UNCERTAIN PROGNOSIS, AN ACUTE COMPLICATED INJURY WITH MULTIPLE TREATMENT OPTIONS, OR AN ACUTE PROBLEM WITH ACCOMPANYING SYSTEMIC SYMPTOMS, THAT POSE(S) A MODERATE RISK OF MORBIDITY. THIS CONDITION MAY ALSO INCLUDE RX DRUG MANAGEMENT, OR A DECISON FOR MINOR SURGERY. The visit on the day of the encounter encompassed interpreting the data and educating the patient as to the nature of their condition, treatment options available according to their individual PMH, meds, allergies, and overall health/living conditions, as well as any potential risks or complications that may occur from a failure to adhere to, and participate in, the recommended course of therapy. The discussion included a complete verbal, and/or written explanation of the examination results, any x-rays taken, the proposed diagnosis, and outline of the treatment plan. A schedule for future care needs was also explained. The patient verbalized an understanding of the instructions at this time and agreed to be an active participant in their treatment. If the patient should think of any questions or concerns after the visit, I have encouraged the patient to call the office.?Biopsy:?A copy of the biopsy results was distributed to the patient for their records.?F/U Fungal nails:?Reviewed the nailbiopsy results with the pt , Reviewed with the patient the time needed before we start seeing results with the topical medication. Discussed the results that we hope to see . We discussed the duration of time needed to see results., Nail debridement performed extensively to reduce/remove overall nail length and girth, subungual debris, and necrotic tissue, by manual and electrical means with use of a nail nipper and/or dremel, to more viable healthy nail plate or bed tissue. Silver nitrate used for any petechial bleeding as necessary- Discussed applying urea nail gel to the nails prior to application of the medication may help.?F/u Visit:?The Pt. was counseled on the remaining treatment options and importance of adherence to recomm; the Pt wishes to continue present protochol longer.? ??Screening/Special Tests:?Fall Risk?Screening:?No falls in the past year ?FALLS: Screening for Future Fall Risk?Have you had any falls with injury in the past year??No * Follow Up:?3 Months * Images: * Sign off status: Completed true * Provider:?Tami Crabtree DPM Date:?2024 Generated for Ivonne deng/Nancie/Jami on:?05/22/2024 09:49 AM EDT History and Physical Notes * HPI (History of Present Illness) Category Sub-Category Detail Notes Category Not es Painful Nails Onset/Cause: unknown Course: , improved at 20 % Duration: several months Location: Great toe , Both fee t Nature: tender , discolored , thick Treatments: relates adherence to recom tx, Tolernate and urea nail gel- recomm by nail culture Pt States Last PCP Visit: Date:: 01/31/2024 Foot Pain Location: Inside, Great toe joint, RIG HT Duration: , several years Course: , improved, at 85 % Aggravated: any pressure Treatments: rest/alter normal da filemon activity, change in shoes Examination Category Sub-Category Detail Notes Category Not es Neurological SENSORY: Neurological exa m reveals intact sensorium, pain sensation normal, vibration sensation intact, pinprick sensation is normal in the lower extremities, Pt denies, anesthesia, burning, paresthesia, tingling, B/L TINEL'S COMPRESSION: Negative, Saphenous nerve distribution, Right DEEP TENDON REFLEXES: Achilles, 2/4, B/L Orthopedic GAIT ABNORMALITY: Pronated , abducted ang le and base of gate , B/L FOOT MORPHOLOGY: normal , B/L BUNION: Dorso-Medially promi nent 1st MPJ , Limited 1st MPJ Dorsal ROM , Limited 1st MPJ Plantar ROM , Crepitus with ROM present , Pain assoc with 1st MPJ ROM DECREASED DIGITAL DEFORMITIES: Digital contracture , PIPJ, 2-5 B/L, incompl-reducible with WB, or to push-up test, no over, nor underlapping MUSCLE STRENGTH: 5/5 all groups in a symmetrical fashion, B/L General Examination GENERAL APPEARANCE: Reveals a pleasant, alert, well nourished, well-developed, well hydrated individual, who demonstrates proper attention to hygiene/body habitus, and is in no acute distress, Pt serves as own historian for office visit today ORIENTED: person, place, and t pablito Vascular DP PULSES (B): 3/4, B/L PT PULSES (B): 3/4, B/L CAPILLARY FILL TIME: immediate, all digi ts, B/L TEMPERTURE GRADIENT (C): normal, warm to cool, proximal to distal, B/L, B/L TROPHIC CONDITION-TEXTURE/ELASTICITY/TURGOR/HAIR GROWTH (B): normal, B/L PIGMENTATION: normal, B/L Nails NAILS are: Elongated, overg rown, dystrophic, lytic, greater than 3mm thick, discolored and friable with crumbly malodorous subungual debris, with pain on palpation , TA , T5 , T9
--- OUTSIDE RECORDS SUMMARY | 2024-05-22 09:50 | XMS_ITS | Continuity of Care Document ---
Author Organization [facility] [address] [place] [address] Phone [phone] Care Team Providers Care Lightout Examiner Name Role Phone Saul Blanton M.D. Care Team Information Receive r [phone] Problems Active Problems Provider Date Osteoporosis Birgit Mercado M.D. Ons et: 03/20/2022 Anxiety Birgit Mercado M.D. Ons et: 03/20/2022 Depressive disorder Birgit Mercado M.D. Onset: 03/20/2022 Age related macular degeneration Birgit Kaminski M.D. Onset: 03/20/2022 Insomnia Birgit Mercado M.D. Ons et: 03/20/2022 Gastroesophageal reflux disease Birgit Spann M.D. Onset: 03/20/2022 Osteoarthritis Birgit Mercado M.D. Ons et: 03/20/2022 Chronic diarrhea Birgit Mercado M.D. On set: 03/20/2022 Social History Type Date Description Comments Sex Unknown Lives With Spouse Work Status Retired ETOH Use Consumes 2-3 gla sses of wine per week Tobacco Use Start: Unknown End: Unknown Patient is a former smoker Quit approx 1974 Allergies and adverse reactions Description No Known Drug Allergies Medications Active Medications SIG Qnty Indications Order ing Provider Date Preservision Areds 2Areds 2 Chewtabs 2 by mouth every day Birgit Mercado M.D. 03/20/2022 Citalopram [id number] Tablets Take 1 Tablet By Mouth Every Day Saul Blanton M.D. [id number] Tablets Take 4 Tablets By Mouth 1 Hour Before Appointment Unknown Multivitamin Womens 50+ AdvancedTablets 1 by mouth every day Birgit Mercado M.D. Loperamide HCL2mg Capsules 1 bid Birgit Mercado M.D. Vital Signs Date Vital Result Comment 04/18/2024 8:27am BP Systolic 118 mmHg BP Diastolic 70 mmHg Heart Rate 66 /min Height 63.25 inches 5'3.25 Weight 144.00 lb BMI (Body Mass Index) 25.3 kg/m2 Results Test Acquired Date Facility Test Result H/L Range Note Creatinine 11/28/2023 [facility] Creatinine 0.86 mg/dL 0.57-1.00 eGFR 70 mL/min/1.73 >59 Calcium 11/28/2023 [facility] Calcium 9.3 mg/dL 8.7-10.3 Albumin 11/28/2023 [facility] Albumin 4.3 g/dL 3.8-4.8 N-Telopeptide, Urine 11/28/2023 [facility] N-Telopeptide 107 nmolBCE Not Estab. Creatinine, Urine 34.8 mg/dL Not Estab. N-Telo/Creat. Ratio 35 nMBCE/mMCr 0-89 Interpretive Guide: See Comment: 1 Creatinine 09/18/2022 [facility] Creatinine 0.7 mg/dL (0.5-1.0) Estimated GFR Creatinine 84 ML/MIN/1.73 M2 2 Calcium 09/18/2022 [facility] Calcium 10.0 mg/dL (8.6-10.5 ) 25Oh Vitamin D 09/18/2022 [facility] 25Oh Vitamin D 42.6 NG/ML (20-50) Albumin 09/18/2022 [facility] Albumin 4.3 GM/DL (3.4-4.8) N-Telopeptide Cross Links, Urine 09/18/2022 [facility] Cross Linked N-Telopeptides 373 3 Creat, Urine 77.2 4 N-Telopeptide/C re at Ratio 55 5 NTX Interpretaion Comment 6 1 The N-telopeptide an d Creatinine are used to calculate the N-telo/Creat. Ratio which is referred to as NTx . Suggested guidelines for the clinical use of NTx are as follows: 1. Menopausal Women not on Hormone Replacement Therapy (HRT): Women with a baseline NTx value >38 are at significant risk for a decrease in bone mineral density (BMD) after 1 year compared to women on HRT. The probability of a decline in BMD increases with NTx value as follows: (1): Baseline NTx Probability of Decrease in BMD 18- 38 1.4 p=0.28 38- 51 2.5 p=0.03 51- 67 3.8 p=0.0006 67-188 17.3 p=0.0001 2. Menopausal Women Receiving Antiresorptive Therapy: The probability that treatment is effective after three months is increased when the measured NTx value is <or=38 nM BCE/mM THEATRICAL RIGGER, or NTx has decreased >or=30% from baseline.[1] 3. Patients with Paget's Disease of Bone: The probability that treatment is effective after one month is increased when the measured NTx value is within the reference range, or NTx has decreased >or=30% from baseline.[2] 1. Dinora CH, Tami NH, Babar GS, et al. Am J Med, 102:29-37,1997. (1):M757, 1996. 2. Bone H, Reggie J, et al. J Bone Min Res.11(1):M757,1996 2 Creatinine based est imated glomerular filtration (eGFR) in adults is calculated using the National Kid[employer] recommended 2020 CKD-EPI equation. Estimates GFR from serum creatinine, age and sex. 3 Reference range: Not Estab. Unit: nmol BCE Test performed at [facility], [address] [place] [address] 4 Reference range: Not Estab. Unit: mg/dL Test performed by [facility], [address] [place] [address] 5 Reference range: 0 t o 89 Unit: nM BCE/mM Cr 6 (NOTE) The N-telopeptide and Creatinine are used to calculate the N-telo/Creat. Ratio which is referred to as NTx . Suggested guidelines for the clinical use of NTx are as follows: 1. Menopausal Women not on Hormone Replacement Therapy (HRT): Women with a baseline NTx value >38 are at significant risk for a decrease in bone mineral density (BMD) after 1 year compared to women on HRT. The probability of a decline in BMD increases with NTx value as follows: (1): Baseline NTx Probability of Decrease in BMD 18- 38 1.4 p EQ 0.28 38- 51 2.5 p EQ 0.03 51- 67 3.8 p EQ 0.0006 67-188 17.3 p EQ 0.0001 2. Menopausal Women Receiving Antiresorptive Therapy: The probability that treatment is effective after three months is increased when the measured NTx value is <or EQ 38 nM BCE/mM THEATRICAL RIGGER, or NTx has decreased >or EQ 30% from baseline.[1] 3. Patients with Paget's Disease of Bone: The probability that treatment is effective after one month is increased when the measured NTx value is within the reference range, or NTx has decreased >or EQ 30% from baseline.[2] 1. Dinora CH, Tami NH, Babar GS, et al. Am J Med, 102:29-37,1996. (1):M757, 1996. 2. Bone H, Reggie J, et al. J Bone Min Res.11(1):M757,1996 [place] [address] Procedures Date Code Description Status 09/18/2022 66392 Collection Of Venous Blood B y Venipuncture Completed Medical Devices Description No Information Available Encounters Type Date Location Provider Dx Diagnosis Office Visit 04/18/2024 8:30a Main Office Birgit Mercado M.D. M81.0 Age-related osteoporosis w/o current pathological fracture Assessments Date Code Description Provider 04/18/2024 M81.0 Age-related oste oporosis without current pathological fracture Birgit Mercado M.D. Plan of Treatment Future Appointment(s):* 12/17/2024 8:30 am - Birgit Mercado M.D. at Main Office 03/19/2023 - Birgit Mercado M.D.* M85.80 Other specified disorders of bone density and structure, unspecified site Functional Status Description No Information Available Mental Status Description No Information Available Referrals Description No Information Available
== END 2024-05-22 09:20 | disposition home or self-care (01) ==
LOC: HO.MAMMO 09:19
PROVIDERS: PCP Internal Medicine; Visit Provider Internal Medicine
DX: Z12.31 Encounter for screening mammogram for malignant neoplasm of breast (principal)
CPT/HCPCS: 77063; 77067

== ENCOUNTER → 2024-05-22 09:30 | Outpatient (BNV) | payer MEDICARE, SELFPAY | PROVIDERS: PCP Internal Medicine; Visit Provider Internal Medicine | DX: Z12.31 Encounter for screening mammogram for malignant neoplasm of breast (principal) | CPT/HCPCS: 77063; 77067 ==